=== PATIENT | female | born 1970 | race Caucasian/White ===

== ENCOUNTER 2018-04-29 14:01 | Emergency (ER) | payer BC ==
[~2018-04-29] VITALS: Ht 177.8 cm; Wt 143.2 kg
[~2018-04-29 14:01] MED LIST: LABETALOL HCL100 MG PO
[2018-04-29 14:50] LABS: HEMATOCRIT 42.1 % (36.0-46.0); HEMOGLOBIN 14.9 G/DL (11.9-15.5); MCH 31.7 PG (29.0-34.0); MCHC 35.4 G/DL (30.0-36.0); MCV 89.6 FL (83-99); PLATELET COUNT 203 K/uL (156-360); RBC DIS.WIDTH-CV 12.5 % (11.8-14.6); WHITE BLOOD COUNT 9.3 K/uL (4.1-10.2)
[2018-04-29 14:58] LABS: ALBUMIN 4.3 g/dL (3.2-4.8); CHLORIDE 107 mEq/L (99-109); POTASSIUM 4.1 mEq/L (3.7-5.4); SODIUM 139 mEq/L (136-147)
[2018-04-29 15:01] LABS: GLUCOSE 143 mg/dL (70-99); TOTAL PROTEIN 7.1 g/dL (6.4-8.3)
[2018-04-29 15:03] LABS: APPEARANCE SL.HAZY ((CLEAR)); BILIRUBIN NEGATIVE; BLOOD SMALL; COLOR YELLOW ((YELLOW)); GLUCOSE (STRIP) NEGATIVE; KETONES NEGATIVE; LEUKOCYTES NEGATIVE; NITRITE NEGATIVE; PROTEIN (STRIP) 30; UROBILINOGEN 0.2 MG/DL (0.2-1.0)
[2018-04-29 15:03] LABS: TOTAL BILIRUBIN 1.8 mg/dL (0.0-1.0)
[2018-04-29 15:04] LABS: ALKALINE PHOSPHATASE 60 IU/L (3-129); CREATININE 0.8 mg/dL (0.6-1.3); GFR ESTIMATE (CALCULATED) > 59 mL/min/
[2018-04-29 15:05] LABS: UREA NITROGEN (BUN) 10 mg/dL (9-23)
[2018-04-29 15:06] LABS: AST (GOT) 24 IU/L (2-34)
[2018-04-29 15:07] LABS: ALT (GPT) 32 IU/L (3-49)
[2018-04-29 15:08] LABS: LIPASE 20 U/L (1.0-51.0)
[2018-04-29 15:14] LABS: QUANTITATIVE HCG < 4.0 MIU/ML
[2018-04-29 15:42] LABS: EPITHELIAL CELLS 1+ /HPF; WHITE BLOOD CELLS NONE SEEN /HPF (0-5)
[2018-04-29 15:43] LABS: BACTERIA RARE /HPF; MUCUS NONE SEEN /LPF; UCUL ADDED? NO
[2018-04-29] MEDS ORDERED: MOTRIN800 MG PO (16:32)
[2018-04-29] MEDS ORDERED: FLOMAX0.4 MG PO (16:32)
[2018-04-29] MEDS ORDERED: ZOFRAN4 MG PO (16:32)
[2018-04-29] MEDS ORDERED: PERCOCET 5/31 TABLET PO (16:32)
[2018-04-29 16:36] VITALS: BP 162/85
== END 2018-04-29 16:42 | disposition home or self-care (01) ==
LOC: EME 14:01
PROVIDERS: Nurse Practitioner Family
DX: R10.11 Right upper quadrant pain (principal); R31.9 Hematuria, unspecified; N20.1 Calculus of ureter; K42.9 Umbilical hernia without obstruction or gangrene; Z90.49 Acquired absence of other specified parts of digestive tract
CPT/HCPCS: 74177; 80053; 81003; 83690; 84702; 85027; 99281; 99284; J1885; J7120